=== PATIENT | female | born 1960 | race Native Hawaiian/Other Pacific Islander ===

== ENCOUNTER 2016-03-26 10:18 | Outpatient (CLI) | payer OTHER, MEDICARE | END 2016-03-26 19:07 | disposition home or self-care (01) | LOC: LAB 10:18 | DX: D64.89 Other specified anemias (principal) | CPT/HCPCS: 85018 ==

== ENCOUNTER 2016-09-05 14:39 | Outpatient (CLI) | payer OTHER, MEDICARE ==
[2016-09-05 17:12] LABS: POTASSIUM 5.7 mmol/L (3.6-5.2)
== END 2016-09-05 15:40 | disposition home or self-care (01) ==
LOC: LAB 14:39
PROVIDERS: Internal Medicine Nephrology
DX: Z79.899 Other long term (current) drug therapy (principal); Z51.81 Encounter for therapeutic drug level monitoring
CPT/HCPCS: 80048

== ENCOUNTER 2016-12-10 09:48 | Inpatient (IN) | payer OTHER, MEDICARE ==
[~2016-12-10] VITALS: Ht 157.5 cm; Wt 61.7 kg
[2016-12-10] VITALS (26 sets, daily range): BP systolic 142–221; BP diastolic 80–128; TEMP 97.5–98.4; Ht 157.5 cm; Wt 61.7 kg
[2016-12-10 10:24] LABS: PLATELET COUNT 179 K/uL (152-353)
[2016-12-10] MEDS ORDERED: ALPR0.2566 PO (10:31)
[2016-12-10 10:33] LABS: POTASSIUM 4.7 mmol/L (3.6-5.2)
[2016-12-10] MEDS ORDERED: DIPH50CA30 PO (10:33)
[2016-12-10] MEDS ORDERED: STOOL SOFT60 MG/15 M OR (10:33)
[2016-12-10] MEDS ORDERED: [UNRECOGNIZED DRUG - CODE] EX (10:36)
[2016-12-10] MEDS ORDERED: FURO80TA4 PO (10:36)
[2016-12-10] MEDS ORDERED: NEURONTIN 100M100 MG OR (10:36)
[2016-12-10 10:37] LABS: PARTIAL THROMBOPLASTIN TIME 21.7 SECONDS (24.5-33.6)
[2016-12-10] MEDS ORDERED: HYDRALAZINE50 MG PO (10:37)
[2016-12-10] MEDS ORDERED: HYDR-3182 PO (10:38)
[2016-12-10] MEDS ORDERED: ROWEEPRA500 MG PO (10:38)
[2016-12-10] MEDS ORDERED: ALBU90AE13 INH (10:38)
[2016-12-10] MEDS ORDERED: RENVELA800 MG OR (10:42)
[2016-12-10] MEDS ORDERED: REMERON SOLTAB30 MG OR (10:42)
[2016-12-10] MEDS ORDERED: RANITIDINE 150150 MG PO (10:42)
[2016-12-10] MEDS ORDERED: LOSA50TA PO (10:43)
--- NOTE | 2016-12-10 11:35 | NUR ---
56 YEAR OLD FEMALE ADMITTED TO ICU FROM ER VIA STRETCHER. ADMITTED TO DR MENDEZ SERVICES DX. ACUTE RESP FAILURE, HYPOXIA, AMS, HTN, COPD, ANXIETY,. PT TRANSFERED TO BED 2 PT ORIENTED TO ROOM PLACED ON MONITOR. ELLEN LI RN HERE TO START DIALYSIS. PT FOLLOWS COMMANDS NO COMPLAINTS OF PAIN PLACED ON MONITOR. SHORT OF BREATH EXP WHEEZING DIMISHED BASES. USING ACCESSORY MUSCLES.
--- NOTE | 2016-12-10 12:00 | NUR ---
PT HOLDEN BIPAP WELL. RESTING WITH EYES CLOSED MOTHER AT BEDSIDE ASKED HER QUESTIONS FOR ADMISSION ASSESSEMENT. PT STARTED ON DIALYSIS.
--- NOTE | 2016-12-10 13:29 | NUR ---
RESTING QUIETLY DENIES PAIN RESTING WITH EYES CLOSED PT AWOKE WITH SMALL AMOUNT EMESIS ASSISTED NEEDED. APPEARS TO BE HOLDEN DIALYSIS AND BIPAP WELL. C/O CRAMPING LEGS.
--- NOTE | 2016-12-10 13:40 | NUR ---
PT OFF DIALYSIS C/O LEG CRAMPS DR TOLENTINO CALLED BY ELLEN LI RN. RECIEVED NEW ORDERS ABG TO BE DRAWN. PULLED OFF 800 ML. ATTEMPT TO TAKE OFF BIPAP ONLY LAST FEW MIN BECAME SHORT OF BREATH RETURN TO BIPAP.
--- NOTE | 2016-12-10 14:36 | NUR ---
RESTING QUIETLY WEARING BIPAP SAT 100% RESP 18 MIN. ABG DRAWN.
--- NOTE | 2016-12-10 16:51 | NUR ---
RECIEVED CALL EARLIER PT TO GO TO [facility]. 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 CHART COPIED CALLED EMS
--- NOTE | 2016-12-10 17:31 | NUR ---
RECIEVED CALL FROM [facility] GAVE REPORT TO ANGÉLICA RIVERA RN. ALSO RECIEVED CALL FROM EMS [facility] ON THEIR WAY TO TAKE PT. PATIENT BACK UP IN BED C/O MASK HURTING HER FACE REPOSITIONED ENCOURAGED PT TO WEAR LONG POSSIBLE. B/P 152/94 B/P HAS IMPROVED SINCE DIALYSIS. PT TO SHORT OF BREATH TO EAT. DINNER TRAY HELD.
--- NOTE | 2016-12-10 18:23 | NUR ---
RECIEVED REPORT ELEVATED D DIMER Klaus LI RN CALLED TO DR TOLENTINO TALKED OF DIFFERENT OPITIONS. REPORT TO DR NAISL, UNABLE TO DO CT AND/OR VQ SCAN PT RECIEVED HEPARIN DURING DIALYSIS. PT TO BE TRANSFERED TO [place] WILL LET THEM KNOW.
--- NOTE | 2016-12-10 18:28 | NUR ---
CALLED BACK TO [facility] SPOKE WITH BEATA RIVERA REPORT PT COMING A LITTLE LATER BY EMS REPORT D DIMER.
--- NOTE | 2016-12-10 20:31 | NUR ---
PM ASSESSMENT COMPLETED. PT WAS GIVEN XANAX PO FOR AGITATION AND ANXIETY. PT WEARING BIPAP. PT WITH LABORED BREATHING AT 28 BREATHS A MINUTE. CM WITH SINUS TACHYCARDIA. O2 SAT IS 99 PERCENT.
--- NOTE | 2016-12-10 21:22 | NUR ---
AWAITING FOR AMBULANCE SERVICE TO ARRIVE TO TRANSPORT PT TO [facility] IN [facility]. PT IS A 54 YEAR OLD WHITE FEMALE WITH COPD, RENAL FAILURE, AND DEPRESSION WITH ANXIETY. CM WITH SINUS RHYTHM. COMER CATHETAR INTACT WITH YELLOW URINE DRAINING.
--- NOTE | 2016-12-10 21:35 | NUR ---
[facility]...[facility] HERE FOR TRANSPORT NEREIDA MARTIN.
--- NOTE | 2016-12-10 22:30 | NUR ---
PT WAS TRANSFERRED OUT VIA STRETCHER. REPORT WAS GIVEN TO NEREIDA ([employer]) [facility]. PT LEFT WITH BI PAP INTACT AND VITAL SIGNS STABLE. COBRA FORM AND PAPER WORK WAS GIVEN TO EMS.
== END 2016-12-10 22:00 | disposition short-term general hospital (02) | DRG 189 ==
LOC: ED 09:48 → ICU 11:22
PROVIDERS: ADMIT Emergency Medicine
PROC: 5A1D70Z Performance of Urinary Filtration, Intermittent, Less than 6 Hours Per Day (ICD-10-PCS; principal; 2016-12-10)
DX: J96.02 Acute respiratory failure with hypercapnia (principal); N18.6 End stage renal disease; I12.0 Hypertensive chronic kidney disease with stage 5 chronic kidney disease or end stage renal disease; R41.82 Altered mental status, unspecified; J44.9 Chronic obstructive pulmonary disease, unspecified; F41.8 Other specified anxiety disorders; D50.8 Other iron deficiency anemias; E21.2 Other hyperparathyroidism
CPT/HCPCS: 36415; 36600; 51702; 80053; 81000; 82330; 82550; 82553; 82805; 84443; 84484; 85027; 85379; 85610; 85730; 93005; 94760; 96365; 96375; 99285; J0696; J1644; J1940; J2060